=== PATIENT | female | born 1940 | race Caucasian/White ===

== ENCOUNTER → 2016-05-16 | Outpatient (CLI) | payer OTHER, MEDICARE ==
[2016-05-16 12:06] LABS: THYROID STIMULATING HORMONE 4.37 uIu/ml (0.300-4.500)
== END | disposition home or self-care (01) ==
LOC: C.LAB 10:21
PROVIDERS: ATTEND Internal Medicine
DX: E55.9 Vitamin D deficiency, unspecified (principal); E03.9 Hypothyroidism, unspecified

== ENCOUNTER → 2016-08-16 | Outpatient (CLI) | payer OTHER, MEDICARE ==
[2016-08-16 10:58] LABS: BASO % 0.2 %; BASO ABS # 0.01 K/uL (0-0.2); COMPLETE YES; EOS % 1.9 %; HEMATOCRIT 40.6 % (37-47); IG% 0.2 %; LYMPH % 34.7 %; LYMPH ABS # 1.61 K/uL (1.2-3.4); MEAN CELL VOLUME 86.9 fL (80-100); MEAN CORPUSCULAR HEMOGLOBIN 30.4 pg (25-34); MEAN PLATELET VOLUME 9.9 fL (7.4-10.4); MONO % 9.3 %; NEUT % 53.7 %; PLATELET COUNT 305 K/uL (130-400); RED BLOOD COUNT 4.67 M/uL (4.2-5.4); WHITE BLOOD COUNT 4.64 K/uL (4.8-10.8)
[2016-08-16 11:08] LABS: BLOOD UREA NITROGEN 14 mg/dl (7-18); BUN/CREATININE RATIO 20.3 (10-20); CALCIUM 8.7 mg/dl (8.5-10.1); CARBON DIOXIDE 30 mmol/L (21-32); CHLORIDE 107 mmol/L (98-107); CHOLESTEROL 203 mg/dl (0-200); CREATININE 0.68 mg/dl (0.60-1.20); GLUCOSE 95 mg/dl (70-99); POTASSIUM 4.2 mmol/L (3.5-5.1); SODIUM 141 mmol/L (136-145); TRIGLYCERIDES 155 mg/dl (0-150); VERY LOW DENSITY LIPOPROT CALC 31 mg/dl
[2016-08-16 11:18] LABS: CHOLESTEROL/HDL RATIO 3.5; HDL CHOLESTEROL 58 mg/dl; LDL CHOLESTEROL CALCULATED 114 mg/dl
== END | disposition home or self-care (01) ==
LOC: C.LABBC 08:46
PROVIDERS: ATTEND Internal Medicine
DX: E03.9 Hypothyroidism, unspecified (principal); M85.80 Other specified disorders of bone density and structure, unspecified site; E78.5 Hyperlipidemia, unspecified; K21.9 Gastro-esophageal reflux disease without esophagitis; E55.9 Vitamin D deficiency, unspecified

== ENCOUNTER → 2017-01-17 | Outpatient (CLI) | payer OTHER, MEDICARE ==
[2017-01-17 14:29] LABS: BLOOD UREA NITROGEN 14 mg/dl (7-18); BUN/CREATININE RATIO 19.9 (10-20); CALCIUM 9.3 mg/dl (8.5-10.1); CARBON DIOXIDE 28 mmol/L (21-32); CHLORIDE 107 mmol/L (98-107); CHOLESTEROL 204 mg/dl (0-200); GLUCOSE 95 mg/dl (70-99); POTASSIUM 4.4 mmol/L (3.5-5.1); SODIUM 139 mmol/L (136-145); TRIGLYCERIDES 113 mg/dl (0-150); VERY LOW DENSITY LIPOPROT CALC 23 mg/dl
[2017-01-17 14:39] LABS: CHOLESTEROL/HDL RATIO 3.6; HDL CHOLESTEROL 57 mg/dl; LDL CHOLESTEROL CALCULATED 124 mg/dl
== END | disposition home or self-care (01) ==
LOC: C.LAB 09:20
PROVIDERS: ATTEND Internal Medicine
DX: E55.9 Vitamin D deficiency, unspecified (principal); E03.9 Hypothyroidism, unspecified; M85.80 Other specified disorders of bone density and structure, unspecified site; E78.00 Pure hypercholesterolemia, unspecified

== ENCOUNTER → 2017-05-18 | Outpatient (CLI) | payer OTHER, MEDICARE ==
[2017-05-18 11:31] LABS: BLOOD UREA NITROGEN 13 mg/dl (7-18); CALCIUM 8.9 mg/dl (8.5-10.1); CARBON DIOXIDE 28 mmol/L (21-32); CHOLESTEROL 201 mg/dl (0-200); CREATININE 0.74 mg/dl (0.60-1.20); GLUCOSE 99 mg/dl (70-99); POTASSIUM 4.2 mmol/L (3.5-5.1); SODIUM 140 mmol/L (136-145)
[2017-05-18 11:41] LABS: LDL CHOLESTEROL CALCULATED 117 mg/dl
== END | disposition home or self-care (01) ==
LOC: C.LABBC 08:38
PROVIDERS: ATTEND Internal Medicine
DX: E55.9 Vitamin D deficiency, unspecified (principal); E78.5 Hyperlipidemia, unspecified; E78.00 Pure hypercholesterolemia, unspecified; E03.9 Hypothyroidism, unspecified; M85.80 Other specified disorders of bone density and structure, unspecified site

== ENCOUNTER → 2017-07-28 | Outpatient (CLI) | payer OTHER, MEDICARE ==
--- NOTE | 2017-07-28 13:14 | DIAGNOSTIC IMAGING REPORT ---
Brain MRA HISTORY: Left facial twitching. I63.9 Lacunar infarction [id number] TECHNIQUE: 3-D [id number] MRA of the brain was performed without contrast. COMPARISON STUDY: None. FINDINGS: Visualized intracranial internal carotid arteries, distal vertebral arteries, and basilar artery are widely patent. There is no significant stenosis, occlusion, or aneurysm seen within the bilateral ACAs, MCAs, or biostatistician. The right P1 segment is hypoplastic. The right LABEL STITCHER is fed primarily through the posterior communicating artery. This is consistent with a persistent circulation and is a normal variant. IMPRESSION: No significant stenosis, occlusion, or aneurysm within the [place]. Electronically signed by: Bernard Russell M.D. 07/28/2017 1:12 PM Dictated Date/Time: 07/28/2017 1:09 PM
== END | disposition home or self-care (01) ==
LOC: C.MRIBC 12:09
PROVIDERS: ATTEND Internal Medicine
DX: I63.9 Cerebral infarction, unspecified (principal)

== ENCOUNTER → 2017-08-25 | Outpatient (CLI) | payer OTHER, MEDICARE ==
[~2017-08-25] MED LIST: GADAVIST IV PRN
--- NOTE | 2017-08-25 16:07 | DIAGNOSTIC IMAGING REPORT ---
BRAIN COMBO CLINICAL HISTORY: R29.90 Stroke-like [id number] Abnormal brain [id number] mental status change COMPARISON STUDY: No previous studies for comparison. TECHNIQUE: Utilizing a 1.5 Jesusita magnet and dedicated coil, multiplanar, multiecho imaging of the brain was performed pre and postcontrast administration. IV administration of 6 mL of Gadavist contrast was uneventful. FINDINGS: Diffusion-weighted images show a small punctateSm subacute ischemic change posterior left frontal lobe. This measures no more than 4 mm maximum dimension. There are findings of moderate generalized cerebellar as well as cerebral atrophy. Moderate chronic small vessel changes noted throughout. No abnormal postcontrast enhancement. The ventricular system is midline. IMPRESSION: A small 4 mm subacute focus of ischemic change posterior left frontal lobe. Age-related atrophy and chronic small vessel change. No abnormal postcontrast enhancement. The above report was generated using voice recognition software. It may contain grammatical, syntax or spelling errors. Electronically signed by: Darius Gonzalez M.D. 08/25/2017 4:05 PM Dictated Date/Time: 08/25/2017 4:02 PM
--- NOTE | 2017-08-25 21:01 | ECHOCARDIOGRAM REPORT ---
*NOTICE TO RECEIVING REPUBLICAN AGENCY This information is strictly Confidential and protected under [place] law. [place] law prohibits you from making any further disclosure of this information unless further disclosure is expressly permitted by the written consent of the person to whom it pertains or is authorized by law. A general authorization for the release of medical or other information is not sufficient for this purpose. Hospital accepts no responsibility if the information is made available to any other person, INCLUDING THE PATIENT. Interpretation Summary * Name: MARINO SCOTT Study Date: 08/25/2017 01:43 PM BP: 135/83 mmHg * Patient Location: [facility] HR: 83 * : 1940 (M/d/yyyy) Gender: Female Height: 62 in * Age: 76 yrs Ethnicity: [place] Weight: 134 lb * Ordering Physician: Dakotah Dickinson * Referring Physician: Dakotah Dickinson * Performed By: Kia Daily RCS * * Reason For Study: CEREBRAL ISCHEMIA / EMBOLUS * BSA: 1.6 m2 * -- Conclusions -- * 1. Normal left ventricular size and systolic function. EF 60-65%. No regional wall motion abnormalities. Borderline concentric left ventricular hypertrophy. Type 1 diastolic dysfunction. * 2. No significant valvular abnormalities visualized. * 3. There is a very small right to left shunt noted following agitated saline injection, possibly at the inter atrial level, but it is not well visualized. This could represent PFO. * 4. No prior study available for comparison. Procedure Details * A complete two-dimensional transthoracic echocardiogram was performed (2D, M-mode, Doppler and color flow Doppler). * A saline contrast injection was performed to assess for cardiac shunting. * The injection was performed through an intravenous line in the right arm. * The attending nurse who injected the saline contrast was NELY HARTMANN [facility], RN. * A total of 30 cc of agitated saline was given. Left Ventricle * Normal left ventricular size and systolic function. EF 60-65%. No regional wall motion abnormalities. Borderline concentric left ventricular hypertrophy. Type 1 diastolic dysfunction. Right Ventricle * The right ventricle is normal in size and function. * The right ventricular systolic function is normal as assessed by tricuspid annular plane systolic excursion (TAPSE) (normal >1.5 cm). Atria * The left atrial size is normal. * Right atrial size is normal. * There is no evidence of atrial septal defect, but resolution does not allow assessment for a patent foramen ovale. * No visualized ASD or PFO by 2D imaging. There is a very small right to left shunt, possibly at the inter atrial level, but is not well visualized. This could represent PFO. Mitral Valve * The mitral valve is grossly normal. * There is no mitral valve stenosis. * There is trace mitral regurgitation. Tricuspid Valve * The tricuspid valve is not well visualized, but is grossly normal. * There is no tricuspid stenosis. * Significant tricuspid regurgitation is absent. Aortic Valve * The aortic valve is trileaflet. * No hemodynamically significant valvular aortic stenosis. * No aortic regurgitation is present. Pulmonic Valve * The pulmonary valve is inadequately visualized, but the Doppler data is adequate for interpretation. * There is no pulmonic valvular stenosis. * Trace pulmonic valvular regurgitation. Great Vessels * The aortic root is normal size. Pericardium/Pleural * Small anterior pericardial effusion versus fat pad. No echocardiographic evidence of tamponade physiology Great Vessels * Normal inferior vena cava size and collapsability with sniff indicates a normal right atrial pressure of 3 mmHg MMode 2D Measurements and Calculations IVSd 1.1 cm IVSs 1.5 cm LVIDd 3.3 cm LVIDs 2.1 cm LVPWd 1.1 cm LVPWs 1.2 cm IVS/LVPW 10 FS 36.7 % EDV(Teich) 45.0 ml ESV(Teich) 14.5 ml EF(Teich) 67.8 % EDV(cubed) 36.8 ml ESV(cubed) 9.3 ml EF(cubed) 74.7 % % IVS thick 35.0 % % LVPW thick 5.4 % LV mass(C)d 117.7 grams LV mass(C)dI 73.0 grams/m\S\2 LV mass(C)s 88.4 grams LV mass(C)sI 54.8 grams/m\S\2 SV(Teich) 30.5 ml SI(Teich) 18.9 ml/m\S\2 SV(cubed) 27.5 ml SI(cubed) 17.0 ml/m\S\2 Ao root diam 3.2 cm Ao root area 8.2 cm\S\2 LA dimension 3.1 cm LA/Ao 0.97 LVOT diam 2.0 cm LVOT area 3.0 cm\S\2 LVAd ap4 19.8 cm\S\2 LVLd ap4 6.3 cm EDV(MOD-sp4) 50.7 ml EDV(sp4-el) 53.4 ml LVAs ap4 11.6 cm\S\2 LVLs ap4 5.2 cm ESV(MOD-sp4) 22.5 ml ESV(sp4-el) 22.0 ml EF(MOD-sp4) 55.5 % EF(sp4-el) 58.9 % LVAd ap2 20.8 cm\S\2 LVLd ap2 6.3 cm EDV(MOD-sp2) 55.6 ml EDV(sp2-el) 58.6 ml LVAs ap2 10.5 cm\S\2 LVLs ap2 4.8 cm ESV(MOD-sp2) 20.3 ml ESV(sp2-el) 19.8 ml EF(MOD-sp2) 63.5 % EF(sp2-el) 66.2 % LVLd %diff 0.30 % EDV(MOD-bp) 53.3 ml LVLs %diff -8.92 % ESV(MOD-bp) 22.1 ml EF(MOD-bp) 58.5 % SV(MOD-sp4) 28.1 ml SI(MOD-sp4) 17.4 ml/m\S\2 SV(MOD-sp2) 35.3 ml SI(MOD-sp2) 21.9 ml/m\S\2 SV(MOD-bp) 31.2 ml SI(MOD-bp) 19.3 ml/m\S\2 SV(sp4-el) 31.4 ml SI(sp4-el) 19.5 ml/m\S\2 SV(sp2-el) 38.8 ml SI(sp2-el) 24.0 ml/m\S\2 Doppler Measurements and Calculations MV E max jessica 57.2 cm/sec MV A max jessica 73.3 cm/sec MV E/A 0.78 MV P1/2t max jessica 73.3 cm/sec MV P1/2t 87.5 msec MVA(P1/2t) 2.5 cm\S\2 MV dec slope 245.5 cm/sec\S\2 MV dec time 0.33 sec Ao V2 max 90.6 cm/sec Ao max PG 3.3 mmHg Ao max PG (full) 0.31 mmHg LEON(V,A) 2.9 cm\S\2 LEON(V,D) 2.9 cm\S\2 LV V1 max PG 3.0 mmHg LV V1 max 86.3 cm/sec PA V2 max 98.4 cm/sec PA max PG 3.9 mmHg PI max jessica 151.8 cm/sec PI max PG 9.2 mmHg PI dec slope 138.0 cm/sec\S\2 PI P1/2t 322.2 msec
== END | disposition home or self-care (01) ==
LOC: C.MRI 12:34
PROVIDERS: ATTEND Psychiatry & Neurology Neurology
DX: R29.90 Unspecified symptoms and signs involving the nervous system (principal); R90.89 Other abnormal findings on diagnostic imaging of central nervous system

== ENCOUNTER → 2017-08-28 | Outpatient (CLI) | payer OTHER, MEDICARE | END | disposition home or self-care (01) | LOC: C.CPL 10:43 | PROVIDERS: ATTEND Psychiatry & Neurology Neurology | DX: R29.90 Unspecified symptoms and signs involving the nervous system (principal) ==